=== PATIENT | male | born 1980 | race Caucasian/White ===

== ENCOUNTER 2022-07-24 07:38 | Day surgery (SDC) | payer OTHER ==
[~2022-07-24] VITALS: Ht 182.9 cm; Wt 110.0 kg
[2022-07-24 07:42] LABS: HEMATOCRIT 44.5 % (39.0-50.0); MEAN CELL VOLUME 86.4 fL CALC (80.0-100.0); MEAN CORPUSCULAR HGB 31.1 pG CALC (26.0-32.0); NEUT# 3.29 thou/uL (1.82-7.42); RED BLOOD COUNT 5.15 mill/uL (4.70-6.10); RED CELL DISTRI WIDTH 12.4 % (11.5-15.5)
[2022-07-24 07:45] VITALS: BP 138/99
[2022-07-24 07:59] LABS: ALBUMIN 4.5 g/dL (3.2-5.0); ALKALINE PHOSPHATASE 69 u/l (38-126); ANION GAP 12 (6-22 (CALC)); BILIRUBIN, TOTAL 0.4 mg/dL (0.0-1.4); BUN 12 mg/dL (9-20); BUN/CREATININE RATIO 17 (12-20 (CALC)); CARBON DIOXIDE 29 mmol/l (22-30); CHLORIDE 100 mmol/l (95-108); CREATININE 0.7 mg/dL (0.7-1.3); GFR FOR AFR.AMER. > 60 ML/MIN (>=60 (CALC)); GFR OTHER RACES > 60 ML/MIN (>=60 (CALC)); POTASSIUM 4.2 mmol/l (3.5-5.1); SGOT/AST 56 u/l (17-59); SODIUM 138 mmol/l (137-146); TOTAL PROTEIN 7.7 g/dL (6.3-8.2)
[2022-07-24] MEDS ORDERED: DESVENLAFAXINE100 MG PO (08:34)
[2022-07-24] MEDS ORDERED: NALTREXONE50 MG PO (14:40)
[2022-07-24] MEDS ORDERED: CLONIDINE0.1 MG PO (14:42)
[2022-07-24] MEDS ORDERED: KLONOPIN2 MG PO ×2 (14:43→18:26)
[2022-07-24 20:09] VITALS: BP 122/96
[2022-07-24 22:46] VITALS: BP 129/84
[2022-07-25 03:53] VITALS: BP 101/50
[2022-07-25 04:29] LABS: HEMOGLOBIN 15.5 g/dl (14.0-18.0); IMMATURE GRANULOCYTES 0.3 % (0.0-5.0); MEAN CELL VOLUME 86.5 fL CALC (80.0-100.0); MEAN CORPUSCULAR HGB 31.2 pG CALC (26.0-32.0); NEUT# 7.96 thou/uL (1.82-7.42); RED BLOOD COUNT 4.97 mill/uL (4.70-6.10); RED CELL DISTRI WIDTH 12.4 % (11.5-15.5)
[2022-07-25 04:43] LABS: ALBUMIN 4.5 g/dL (3.2-5.0); ALKALINE PHOSPHATASE 66 u/l (38-126); ANION GAP 16 (6-22 (CALC)); BUN 10 mg/dL (9-20); BUN/CREATININE RATIO 15 (12-20 (CALC)); CARBON DIOXIDE 25 mmol/l (22-30); CHLORIDE 106 mmol/l (95-108); CREATININE 0.7 mg/dL (0.7-1.3); GFR FOR AFR.AMER. > 60 ML/MIN (>=60 (CALC)); GFR OTHER RACES > 60 ML/MIN (>=60 (CALC)); MAGNESIUM 2.2 mg/dL (1.6-2.3); POTASSIUM 4.4 mmol/l (3.5-5.1); SGOT/AST 68 u/l (17-59); SODIUM 143 mmol/l (137-146); TOTAL PROTEIN 7.3 g/dL (6.3-8.2)
[2022-07-25 04:47] LABS: BILIRUBIN, TOTAL 0.6 mg/dL (0.0-1.4)
[2022-07-25 07:30] VITALS: BP 116/73
== END 2022-07-25 12:19 | disposition home or self-care (01) | DRG 897 ==
LOC: MS2 07:38 → ANR 07:38 → MS2 20:21 → ANR 07-25 12:19
PROVIDERS: Anesthesiology Critical Care Medicine; ATTEND Anesthesiology
DX: F11.20 Opioid dependence, uncomplicated (principal)
CPT/HCPCS: J2354